=== PATIENT | female | born 1980 | race African-American/Black ===

== ENCOUNTER 2017-02-14 22:19 | Emergency (ER) | payer MEDICAID, OTHER ==
[~2017-02-14] VITALS: Ht 162.6 cm; Wt 104.0 kg
[~2017-02-14 22:19] MED LIST: IBUP-1649 PO
[2017-02-15] MEDS ORDERED: SODIUM CHLORIDE 0.9% 1,000 ML IV ONE (01:56)
[2017-02-15] MEDS ORDERED: ONDANSETRON HCL 4MG/2ML VIAL IV STA (01:56)
[2017-02-15 02:26] LABS: BASOPHILS % 0.6 % (0.0-2.0); EOSINOPHILS % 0.2 % (0.0-5.0); HEMOGLOBIN. 14.4 g/dL (12.0-16.0); LYMPHOCYTES % 13.3 % (20.0-50.0); MEAN CORPUSCULAR HEMOGLOBIN 31.6 pg (28.0-32.0); MEAN CORPUSCULAR VOLUME 90.2 fL (81.0-99.0); MEAN PLATELET VOLUME 7.4 fl (7.4-10.4); MONOCYTES % 8.2 % (2.0-8.0); NEUTROPHILS % 77.7 % (40.0-76.0); PLATELET 406 x1000/uL (130-400); RED BLOOD CELL COUNT 4.55 mill/uL (4.2-5.4); RED CELL DISTRIBUTION WIDTH 13.9 % (11.6-14.6)
[2017-02-15 02:28] LABS: CLARITY URINE CLOUDY (CLEAR); COLOR URINE DARK YELLOW (YELLOW); GLUCOSE URINE NEGATIVE (NEGATIVE); KETONES URINE 1+ (NEGATIVE); LEUKOCYTE ESTERASE URINE 2+ (NEGATIVE); NITRITE URINE NEGATIVE (NEGATIVE); OCCULT BLOOD URINE 1+ (NEGATIVE); PROTEIN URINE 2+ (NEGATIVE); SPECIFIC GRAVITY URINE 1.029 (1.005-1.030)
[2017-02-15 02:34] LABS: CHLORIDE 96 mEq/L (98-107)
[2017-02-15 02:44] LABS: CARBON DIOXIDE 28 mEq/L (21-32)
[2017-02-15] MEDS ORDERED: KETOROLAC 30MG/ML VIAL IV ONE (02:45)
[2017-02-15 03:07] LABS: *AMPHETAMINES SCREEN URINE NEGATIVE (NEGATIVE); *BARBITURATES SCREEN URINE NEGATIVE (NEGATIVE); *BENZODIAZEPINES SCREEN URINE NEGATIVE (NEGATIVE); *COCAINE SCREEN URINE NEGATIVE (NEGATIVE); METHADONE URINE SCREEN NEGATIVE (NEGATIVE); OPIATES URINE SCREEN NEGATIVE (NEGATIVE); PHENCYCLIDINE URINE SCREEN NEGATIVE (NEGATIVE)
[2017-02-15 03:26] LABS: CANNABINOID URINE SCREEN PRESUMTIVE POSITIVE (NEGATIVE)
[2017-02-15] MEDS ORDERED: FAMOTIDINE 20MG/2ML VIAL IV ONE (03:45)
[2017-02-15] MEDS ORDERED: LEVOFLOXACIN 500MG PREMIX 100 ML IV ONE (04:00)
[2017-02-15] MEDS ORDERED: TRAMADOL HCL/ACETAMINOPHEN 37.5/325MG TABLET PO ONE (04:00)
[2017-02-15] MEDS ORDERED: METOCLOPRAMIDE HCL 10MG/2ML VIAL IV ONE (05:15)
[2017-02-15 07:00] VITALS: BP 129/73
== END 2017-02-15 07:01 | disposition home or self-care (01) ==
LOC: ER 22:19
DX: G43.A0 Cyclical vomiting, in migraine, not intractable (principal); E11.9 Type 2 diabetes mellitus without complications; F12.90 Cannabis use, unspecified, uncomplicated; Z98.890 Other specified postprocedural states; Z87.891 Personal history of nicotine dependence
CPT/HCPCS: 36415; 80053; 80305; 81001; 81025; 83690; 85025; 96361; 96365; 96375; 99284; G0482; J1885; J1956; J2405; J2765; J3490; J7030; Z7610

== ENCOUNTER 2017-12-08 05:53 | Inpatient (IN) | payer OTHER ==
[~2017-12-08] VITALS: Ht 162.6 cm; Wt 112.9 kg
[2017-12-08] MEDS ORDERED: FAMOTIDINE 20MG/2ML VIAL IV STA (06:36)
[2017-12-08] MEDS ORDERED: MAGNESIUM/ALUMINUM HYDROXIDE/SIMETHICONE 30ML UDC PO STA (06:36)
[2017-12-08] MEDS ORDERED: SODIUM CHLORIDE 0.9% 1,000 ML IV ONE ×2 (06:36→08:45)
[2017-12-08] MEDS ORDERED: ONDANSETRON HCL 4MG/2ML VIAL IV STA (06:36)
[2017-12-08 07:30] LABS: BASOPHILS % 0.2 % (0.0-2.0); HEMATOCRIT. 40.8 % (36.0-48.0); LYMPHOCYTES % 12.2 % (20.0-50.0); MEAN CORPUSCULAR HEMOGLOBIN 31.1 pg (28.0-32.0); MEAN CORPUSCULAR VOLUME 90.5 fL (81.0-99.0); MEAN PLATELET VOLUME 7.7 fl (7.4-10.4); MONOCYTES % 6.4 % (2.0-8.0); NEUTROPHILS % 81.2 % (40.0-76.0); PLATELET 364 x1000/uL (130-400); RED CELL DISTRIBUTION WIDTH 13.8 % (11.6-14.6)
[2017-12-08 07:33] LABS: CHLORIDE 93 mEq/L (98-107)
[2017-12-08] MEDS ORDERED: KCL 20MEQ/100ML PREMIX 100 ML IV ONE (08:00)
[2017-12-08] MEDS ORDERED: POTASSIUM CHLORIDE 20MEQ/PACKET PO ONE (08:00)
[2017-12-08 08:10] LABS: INR 1.1; PROTHROMBIN TIME 11.3 sec (9.4-11.6)
[2017-12-08] MEDS ORDERED: METOCLOPRAMIDE HCL 10MG/2ML VIAL IV ONE (08:45)
[2017-12-08] MEDS ORDERED: DIPHENHYDRAMINE 50MG/ML VIAL IV ONE (08:45)
[2017-12-08] MEDS ORDERED: MORPHINE SULFATE 4 MG/ML CPJ (NOT FOR IM USE) IV ONE (08:45)
[2017-12-08 10:23] VITALS: BP 136/63
[2017-12-08 10:36] LABS: CLARITY URINE CLEAR (CLEAR); COLOR URINE YELLOW (YELLOW); KETONES URINE 1+ (NEGATIVE); LEUKOCYTE ESTERASE URINE 1+ (NEGATIVE); NITRITE URINE NEGATIVE (NEGATIVE); OCCULT BLOOD URINE NEGATIVE (NEGATIVE); PH URINE 7.5 (4.5-8.0); PROTEIN URINE 2+ (NEGATIVE); SPECIFIC GRAVITY URINE 1.015 (1.005-1.030)
[2017-12-08] MEDS ORDERED: SODIUM CHLORIDE 0.9% 1,000 ML IV SCH (11:45)
[2017-12-08] MEDS ORDERED: MORPHINE SULFATE 4 MG/ML CPJ (NOT FOR IM USE) IV PRN (11:45)
[2017-12-08] MEDS ORDERED: ONDANSETRON HCL 4MG/2ML VIAL IV PRN (11:45)
[2017-12-08] MEDS ORDERED: IPRATROPIUM/ALBUTEROL 0.5-3(2.5)MG/3ML NEB INH PRN (11:45)
[2017-12-08] MEDS ORDERED: ACETAMINOPHEN 650MG SUPP PR PRN (11:45)
[2017-12-08 12:00] VITALS: BP 141/72
[2017-12-08] MEDS ORDERED: PANTOPRAZOLE SODIUM 40 MG/VIAL IV SCH (13:00)
[2017-12-08] MEDS ORDERED: METRONIDAZOLE 500 MG PREMIX 100 ML IV SCH (14:00)
[2017-12-08 14:48] LABS: CREATINE KINASE 503 IU/L (26-192)
[2017-12-08 14:55] LABS: HCG SCREEN NEGATIVE
[2017-12-08] MEDS ORDERED: LEVOFLOXACIN 500MG PREMIX 100 ML IV SCH (15:00)
[2017-12-08] MEDS ORDERED: POTASSIUM CHLORIDE 20MEQ TABLET SR PO NR (15:00)
[2017-12-08 16:00] VITALS: BP 128/68
[2017-12-08 16:12] LABS: CHLORIDE 98 mEq/L (98-107)
[2017-12-08 17:01] LABS: METHADONE URINE SCREEN NEGATIVE (NEGATIVE)
[2017-12-08 17:02] LABS: *COCAINE SCREEN URINE NEGATIVE (NEGATIVE); PHENCYCLIDINE URINE SCREEN NEGATIVE (NEGATIVE)
[2017-12-08 17:03] LABS: *AMPHETAMINES SCREEN URINE NEGATIVE (NEGATIVE); *BARBITURATES SCREEN URINE NEGATIVE (NEGATIVE); *BENZODIAZEPINES SCREEN URINE NEGATIVE (NEGATIVE)
[2017-12-08 17:04] LABS: CANNABINOID URINE SCREEN PRESUMTIVE POSITIVE (NEGATIVE); OPIATES URINE SCREEN PRESUMTIVE POSITIVE (NEGATIVE)
[2017-12-08 18:32] VITALS: BP 128/68
== END 2017-12-08 19:11 | disposition home or self-care (01) | DRG 816 ==
LOC: ER 07:35 → ENRESERV 08:28 → 7WST 08:47 → EDBEDREQ 09:05
PROVIDERS: ADMIT Internal Medicine; ATTEND Internal Medicine
DX: T51.0X1A Toxic effect of ethanol, accidental (unintentional), initial encounter (principal); Z68.41 Body mass index [BMI] 40.0-44.9, adult; I10 Essential (primary) hypertension; E86.0 Dehydration; E66.9 Obesity, unspecified; E11.9 Type 2 diabetes mellitus without complications; E78.5 Hyperlipidemia, unspecified; E87.6 Hypokalemia; K29.20 Alcoholic gastritis without bleeding; F17.210 Nicotine dependence, cigarettes, uncomplicated; K21.9 Gastro-esophageal reflux disease without esophagitis; N39.0 Urinary tract infection, site not specified; Z98.891 History of uterine scar from previous surgery; Z79.899 Other long term (current) drug therapy; Z71.41 Alcohol abuse counseling and surveillance of alcoholic
CPT/HCPCS: 36415; 74018; 80048; 80053; 80305; 81003; 82550; 82553; 82962; 83690; 84132; 84484; 84703; 85025; 85610; 87086; 93005; C9113; J1200; J1956; J2270; J2405; J2765; J3480; J3490; J7030; J7040

== ENCOUNTER 2018-02-15 00:04 | Emergency (ER) | payer OTHER ==
[~2018-02-15] VITALS: Ht 162.6 cm; Wt 100.0 kg
[2018-02-15] MEDS ORDERED: SODIUM CHLORIDE 0.9% 1,000 ML IV ONE (01:45)
[2018-02-15] MEDS ORDERED: METOCLOPRAMIDE HCL 10MG/2ML VIAL IV STA (01:45)
[2018-02-15] MEDS ORDERED: FAMOTIDINE 20MG/2ML VIAL IV STA (01:45)
[2018-02-15 02:32] LABS: CHLORIDE 100 mEq/L (98-107)
[2018-02-15 02:35] LABS: ETHANOL BLOOD < 10 mg/dL
[2018-02-15 02:37] LABS: BASOPHILS % 0.4 % (0.0-2.0); HEMATOCRIT. 42.6 % (36.0-48.0); LYMPHOCYTES % 7.2 % (20.0-50.0); MEAN CORPUSCULAR HEMOGLOBIN 30.2 pg (28.0-32.0); MEAN CORPUSCULAR VOLUME 92.3 fL (81.0-99.0); MEAN PLATELET VOLUME 7.5 fl (7.4-10.4); MONOCYTES % 4.4 % (2.0-8.0); PLATELET 411 x1000/uL (130-400); RED BLOOD CELL COUNT 4.62 mill/uL (4.2-5.4); RED CELL DISTRIBUTION WIDTH 14.5 % (11.6-14.6)
[2018-02-15 02:43] LABS: CLARITY URINE CLOUDY (CLEAR); COLOR URINE YELLOW (YELLOW); PROTEIN URINE 2+ (NEGATIVE); SPECIFIC GRAVITY URINE 1.043 (1.005-1.030)
[2018-02-15 02:44] LABS: KETONES URINE 2+ (NEGATIVE); LEUKOCYTE ESTERASE URINE TRACE (NEGATIVE); NITRITE URINE NEGATIVE (NEGATIVE); OCCULT BLOOD URINE 1+ (NEGATIVE)
[2018-02-15 02:57] LABS: *AMPHETAMINES SCREEN URINE NEGATIVE (NEGATIVE); *BARBITURATES SCREEN URINE NEGATIVE (NEGATIVE); *BENZODIAZEPINES SCREEN URINE NEGATIVE (NEGATIVE); *COCAINE SCREEN URINE NEGATIVE (NEGATIVE); METHADONE URINE SCREEN NEGATIVE (NEGATIVE); OPIATES URINE SCREEN NEGATIVE (NEGATIVE); PHENCYCLIDINE URINE SCREEN NEGATIVE (NEGATIVE)
[2018-02-15 03:06] LABS: CANNABINOID URINE SCREEN PRESUMTIVE POSITIVE (NEGATIVE)
[2018-02-15] MEDS ORDERED: HYDROCODONE/ACETAMINOPHEN 5/325MG TABLET PO ONE (06:00)
[2018-02-15 06:12] VITALS: BP 160/85
== END 2018-02-15 07:00 | disposition home or self-care (01) ==
LOC: ER 00:04 → CANBEDREQ 17:03
DX: R10.9 Unspecified abdominal pain (principal); E11.9 Type 2 diabetes mellitus without complications; F10.20 Alcohol dependence, uncomplicated; Z87.891 Personal history of nicotine dependence
CPT/HCPCS: 36415; 71045; 76700; 80053; 80305; 81003; 81025; 82962; 83605; 83690; 85025; 93005; 96361; 96374; 96375; 99285; G0482; J2765; J3490; J7030

== ENCOUNTER 2019-02-21 17:57 | Emergency (ER) | payer OTHER ==
[~2019-02-21] VITALS: Ht 162.6 cm; Wt 104.0 kg
[~2019-02-21 17:57] MED LIST changes: -IBUP-1649 PO; +IBUP-2077 PO
[2019-02-22 00:44] LABS: BASOPHILS % 0.2 % (0.0-2.0); HEMATOCRIT. 39.1 % (36.0-48.0); HEMOGLOBIN. 13.3 g/dL (12.0-16.0); LYMPHOCYTES % 7.1 % (20.0-50.0); MEAN CORPUSCULAR VOLUME 88.1 fL (81.0-99.0); MEAN PLATELET VOLUME 7.6 fl (7.4-10.4); MONOCYTES % 6.6 % (2.0-8.0); NEUTROPHILS % 86.1 % (40.0-76.0); PLATELET 412 x1000/uL (130-400); RED BLOOD CELL COUNT 4.44 mill/uL (4.2-5.4); RED CELL DISTRIBUTION WIDTH 15.3 % (11.6-14.6)
[2019-02-22 00:51] LABS: CHLORIDE 97 mEq/L (98-107)
[2019-02-22] MEDS: VISCOUS LIDOCAINE 2% 15 ML UDC PO STA (00:53)
[2019-02-22] MEDS: MAGNESIUM/ALUMINUM HYDROXIDE/SIMETHICONE 30ML UDC PO STA (00:53)
[2019-02-22 00:54] LABS: ETHANOL BLOOD < 10 mg/dL
[2019-02-22 01:28] LABS: CLARITY URINE CLOUDY (CLEAR); COLOR URINE DARK YELLOW (YELLOW); KETONES URINE 1+ (NEGATIVE); LEUKOCYTE ESTERASE URINE TRACE (NEGATIVE); NITRITE URINE NEGATIVE (NEGATIVE); OCCULT BLOOD URINE 1+ (NEGATIVE); PH URINE 5.5 (4.5-8.0); PROTEIN URINE 3+ (NEGATIVE); SPECIFIC GRAVITY URINE 1.037 (1.005-1.030)
[2019-02-22 01:39] LABS: *BARBITURATES SCREEN URINE NEGATIVE (NEGATIVE); *BENZODIAZEPINES SCREEN URINE NEGATIVE (NEGATIVE); *COCAINE SCREEN URINE NEGATIVE (NEGATIVE)
[2019-02-22 01:40] LABS: METHADONE URINE SCREEN NEGATIVE (NEGATIVE); OPIATES URINE SCREEN NEGATIVE (NEGATIVE); PHENCYCLIDINE URINE SCREEN NEGATIVE (NEGATIVE)
[2019-02-22 01:44] LABS: *AMPHETAMINES SCREEN URINE NEGATIVE (NEGATIVE)
[2019-02-22 01:47] LABS: CANNABINOID URINE SCREEN PRESUMTIVE POSITIVE (NEGATIVE)
[2019-02-22] MEDS: CEFTRIAXONE 1 G PREMIX 50 ML IV ONE (03:15)
[2019-02-22] MEDS: KETOROLAC 30MG/ML VIAL IV ONE (03:15)
[2019-02-22] MEDS: ONDANSETRON 4MG ODT PO ONE (04:31)
[2019-02-22] MEDS: PHENAZOPYRIDINE HCL 100MG TABLET PO ONE (04:31)
[2019-02-22 04:41] VITALS: BP 182/98
== END 2019-02-22 04:45 | disposition home or self-care (01) ==
LOC: ER 17:57
DX: N39.0 Urinary tract infection, site not specified (principal); R11.2 Nausea with vomiting, unspecified; R19.7 Diarrhea, unspecified; E11.9 Type 2 diabetes mellitus without complications; K21.9 Gastro-esophageal reflux disease without esophagitis; Z98.890 Other specified postprocedural states
CPT/HCPCS: 36415; 71045; 74176; 80053; 80305; 80320; 81003; 81025; 82962; 83690; 85025; 87086; 96365; 96375; 99284; J0696; J1885; Q0162; G0480

== ENCOUNTER 2019-11-22 16:13 | Emergency (ER) | payer OTHER ==
[~2019-11-22] VITALS: Ht 162.6 cm; Wt 90.0 kg
[2019-11-22] MEDS ORDERED: ONDANSETRON HCL 4MG/2ML INJ ONE (17:10)
[2019-11-22] MEDS ORDERED: SODIUM CHLORIDE 0.9% 1,000 ML IV ONE (17:14)
[2019-11-22] MEDS ORDERED: ONDANSETRON HCL 4MG/2ML INJ IV STA (17:14)
[2019-11-22] MEDS ORDERED: ACETAMINOPHEN 500MG TABLET PO ONE (17:15)
[2019-11-22 17:25] LABS: CLARITY URINE CLEAR (CLEAR); COLOR URINE ORANGE (YELLOW); KETONES URINE TRACE (NEGATIVE); LEUKOCYTE ESTERASE URINE 2+ (NEGATIVE); NITRITE URINE NEGATIVE (NEGATIVE); OCCULT BLOOD URINE 3+ (NEGATIVE); PH URINE 6.5 (4.5-8.0); PROTEIN URINE 2+ (NEGATIVE); SPECIFIC GRAVITY URINE 1.017 (1.005-1.030)
[2019-11-22 17:31] LABS: CHLORIDE 90 mEq/L (98-107)
[2019-11-22 17:37] LABS: BASOPHILS % 0.6 % (0.0-2.0); EOSINOPHILS % 0.1 % (0.0-5.0); HEMATOCRIT. 38.2 % (36.0-48.0); HEMOGLOBIN. 12.8 g/dL (12.0-16.0); LYMPHOCYTES % 13.6 % (20.0-50.0); MEAN CORPUSCULAR HEMOGLOBIN 28.1 pg (28.0-32.0); MEAN CORPUSCULAR VOLUME 83.9 fL (81.0-99.0); MONOCYTES % 7.2 % (2.0-8.0); NEUTROPHILS % 78.5 % (40.0-76.0); PLATELET 538 x1000/uL (130-400); RED BLOOD CELL COUNT 4.55 mill/uL (4.2-5.4); RED CELL DISTRIBUTION WIDTH 15.4 % (11.6-14.6)
[2019-11-22] MEDS ORDERED: CEFTRIAXONE 1 G PREMIX 50 ML IV SCH (18:00)
[2019-11-22] MEDS ORDERED: POTASSIUM CHLORIDE 20MEQ TABLET SR PO NR (18:22)
[2019-11-22] MEDS ORDERED: SODIUM CHLORIDE 0.9% 1,000 ML IV NR (18:23)
[2019-11-22 18:45] VITALS: BP 177/63
[2019-11-22 19:21] LABS: HCG SCREEN NEGATIVE
[2019-11-22 19:22] LABS: UCG SCREEN NEGATIVE
== END 2019-11-22 20:35 | disposition home or self-care (01) ==
LOC: ER 16:13
DX: N39.0 Urinary tract infection, site not specified (principal); R11.10 Vomiting, unspecified; E87.6 Hypokalemia; E11.9 Type 2 diabetes mellitus without complications; K21.9 Gastro-esophageal reflux disease without esophagitis; Z98.890 Other specified postprocedural states
CPT/HCPCS: 36415; 80053; 81003; 81025; 83690; 84703; 85025; 96361; 96374; 96375; 99284; J0696; J2405; J7030

== ENCOUNTER 2019-12-24 21:20 | Emergency (ER) | payer OTHER ==
[~2019-12-24] VITALS: Ht 162.6 cm; Wt 91.5 kg
[2019-12-24] MEDS ORDERED: VISCOUS LIDOCAINE 2% 15 ML UDC PO STA (22:44)
[2019-12-24] MEDS ORDERED: MAGNESIUM/ALUMINUM HYDROXIDE/SIMETHICONE 30ML UDC PO STA (22:44)
[2019-12-24] MEDS ORDERED: SODIUM CHLORIDE 0.9% 1,000 ML IV ONE (22:44)
[2019-12-24] MEDS ORDERED: ACETAMINOPHEN 325MG TABLET PO STA (22:44)
[2019-12-24 23:12] LABS: HEMATOCRIT. 36.6 % (36.0-48.0); HEMOGLOBIN. 12.2 g/dL (12.0-16.0); MEAN CORPUSCULAR HEMOGLOBIN 27.5 pg (28.0-32.0); MEAN CORPUSCULAR VOLUME 82.9 fL (81.0-99.0); MEAN PLATELET VOLUME 7.3 fl (7.4-10.4); PLATELET 604 x1000/uL (130-400); RED BLOOD CELL COUNT 4.42 mill/uL (4.2-5.4); RED CELL DISTRIBUTION WIDTH 16.5 % (11.6-14.6)
[2019-12-24 23:13] LABS: CLARITY URINE CLEAR (CLEAR); COLOR URINE YELLOW (YELLOW); KETONES URINE 1+ (NEGATIVE); LEUKOCYTE ESTERASE URINE NEGATIVE (NEGATIVE); NITRITE URINE NEGATIVE (NEGATIVE); OCCULT BLOOD URINE TRACE (NEGATIVE); PH URINE 6.5 (4.5-8.0); PROTEIN URINE 3+ (NEGATIVE); SPECIFIC GRAVITY URINE 1.027 (1.005-1.030)
[2019-12-24 23:16] LABS: CHLORIDE 105 mEq/L (98-107)
[2019-12-24 23:20] LABS: PROTHROMBIN TIME 10.7 sec (9.6-11.0)
[2019-12-24] MEDS ORDERED: CEFTRIAXONE 1 G PREMIX 50 ML IV ONE (23:45)
[2019-12-24 23:54] LABS: PLATELET ESTIMATE INCREASED
[2019-12-25] MEDS ORDERED: ONDANSETRON HCL 4MG/2ML INJ IV ONE (00:15)
[2019-12-25] MEDS ORDERED: KETOROLAC 15MG/ML VIAL IV ONE (00:15)
[2019-12-25 02:11] VITALS: BP 154/81
[2019-12-25] MEDS ORDERED: ONDANSETRON 4MG ODT PO ONE (02:30)
== END 2019-12-25 02:31 | disposition home or self-care (01) ==
LOC: ER 21:20
DX: N39.0 Urinary tract infection, site not specified (principal); K21.9 Gastro-esophageal reflux disease without esophagitis; R10.13 Epigastric pain; Z98.890 Other specified postprocedural states
CPT/HCPCS: 36415; 71045; 76705; 80053; 81003; 83690; 85025; 85610; 93005; 96365; 96366; 96375; 99285; J0696; J1885; J2405; J7030; Q0162

== ENCOUNTER 2020-06-01 19:22 | Emergency (ER) | payer OTHER ==
[~2020-06-01] VITALS: Ht 162.6 cm; Wt 87.0 kg
[2020-06-01] MEDS ORDERED: METOCLOPRAMIDE HCL 10MG/2ML VIAL IV STA (20:53)
[2020-06-01] MEDS ORDERED: FAMOTIDINE 20MG/2ML VIAL IV STA (20:53)
[2020-06-01] MEDS ORDERED: SODIUM CHLORIDE 0.9% 1,000 ML IV ONE (21:00)
[2020-06-01] MEDS ORDERED: DIPHENHYDRAMINE 12.5MG/5ML UDC PO ONE (21:00)
[2020-06-01 21:59] LABS: BASOPHILS % 0.8 % (0.0-2.0); HEMATOCRIT. 36.6 % (36.0-48.0); HEMOGLOBIN. 12.1 g/dL (12.0-16.0); LYMPHOCYTES % 15.5 % (20.0-50.0); MEAN CORPUSCULAR HEMOGLOBIN 26.6 pg (28.0-32.0); MEAN CORPUSCULAR VOLUME 80.2 fL (81.0-99.0); MEAN PLATELET VOLUME 7.7 fl (7.4-10.4); MONOCYTES % 7.7 % (2.0-8.0); PLATELET 654 x1000/uL (130-400); RED BLOOD CELL COUNT 4.56 mill/uL (4.2-5.4); RED CELL DISTRIBUTION WIDTH 16.8 % (11.6-14.6)
[2020-06-01 22:04] LABS: CHLORIDE 92 mEq/L (98-107)
[2020-06-01 22:07] LABS: HCG SCREEN NEGATIVE
[2020-06-01 22:09] LABS: ETHANOL BLOOD < 10 mg/dL
[2020-06-01 22:12] LABS: CLARITY URINE CLOUDY (CLEAR); COLOR URINE YELLOW (YELLOW); KETONES URINE 1+ (NEGATIVE); LEUKOCYTE ESTERASE URINE 2+ (NEGATIVE); NITRITE URINE NEGATIVE (NEGATIVE); OCCULT BLOOD URINE 1+ (NEGATIVE); PH URINE 5.5 (4.5-8.0); PROTEIN URINE 2+ (NEGATIVE); SPECIFIC GRAVITY URINE 1.025 (1.005-1.030)
[2020-06-01] MEDS ORDERED: POTASSIUM CHLORIDE 20MEQ TABLET SR PO ONE (22:45)
[2020-06-01] MEDS ORDERED: ASPIRIN 81MG TABLET PO ONE (22:45)
[2020-06-01] MEDS ORDERED: NITROGLYCERIN 0.4MG TABLET SL SL ONE (22:45)
[2020-06-01 22:50] LABS: METHADONE URINE SCREEN NEGATIVE (NEGATIVE); OPIATES URINE SCREEN NEGATIVE (NEGATIVE); PHENCYCLIDINE URINE SCREEN NEGATIVE (NEGATIVE)
[2020-06-01 22:51] LABS: *AMPHETAMINES SCREEN URINE NEGATIVE (NEGATIVE); *BARBITURATES SCREEN URINE NEGATIVE (NEGATIVE); *BENZODIAZEPINES SCREEN URINE NEGATIVE (NEGATIVE); *COCAINE SCREEN URINE NEGATIVE (NEGATIVE)
[2020-06-01 23:03] LABS: CANNABINOID URINE SCREEN PRESUMTIVE POSITIVE (NEGATIVE)
[2020-06-01] MEDS ORDERED: MORPHINE SULFATE 4 MG/ML CPJ (NOT FOR IM USE) IV ONE (23:45)
[2020-06-01] MEDS ORDERED: HYDRALAZINE HCL 25MG TABLET PO ONE (23:45)
[2020-06-02 06:30] VITALS: BP 154/76
== END 2020-06-02 07:14 | disposition short-term general hospital (02) ==
LOC: ER 19:22
DX: R07.89 Other chest pain (principal); I10 Essential (primary) hypertension; E87.6 Hypokalemia; Z87.891 Personal history of nicotine dependence
CPT/HCPCS: 36415; 71045; 76700; 80053; 80305; 80320; 81003; 81025; 83690; 83880; 84484; 84703; 85025; 87086; 93005; 96361; 96374; 96375; 99285; J2270; J2765; J3490; J7030; Q0163; Z7610; G0480

== ENCOUNTER 2020-12-19 10:06 | Emergency (ER) | payer OTHER ==
[~2020-12-19] VITALS: Ht 162.6 cm; Wt 100.0 kg
[2020-12-19] MEDS ORDERED: NITROGLYCERIN 0.4MG TABLET SL SL PRN (10:45)
[2020-12-19] MEDS ORDERED: ASPIRIN 81MG TABLET PO ONE (10:45)
[2020-12-19 10:56] LABS: BASOPHILS % 0.7 % (0.0-2.0); EOSINOPHILS % 0.4 % (0.0-5.0); HEMATOCRIT. 36.1 % (36.0-48.0); HEMOGLOBIN. 11.6 g/dL (12.0-16.0); LYMPHOCYTES % 8.1 % (20.0-50.0); MEAN CORPUSCULAR HEMOGLOBIN 25.6 pg (28.0-32.0); MEAN CORPUSCULAR VOLUME 79.6 fL (81.0-99.0); MEAN PLATELET VOLUME 7.4 fl (7.4-10.4); MONOCYTES % 6.4 % (2.0-8.0); NEUTROPHILS % 84.4 % (40.0-76.0); PLATELET 514 x1000/uL (130-400); RED BLOOD CELL COUNT 4.53 mill/uL (4.2-5.4); RED CELL DISTRIBUTION WIDTH 16.2 % (11.6-14.6)
[2020-12-19 10:58] LABS: CHLORIDE 99 mEq/L (98-107)
[2020-12-19 11:11] LABS: HCG SCREEN NEGATIVE
[2020-12-19] MEDS ORDERED: KETOROLAC 30MG/ML VIAL IV STA (12:37)
[2020-12-19] MEDS ORDERED: ONDANSETRON 4MG ODT PO STA (12:37)
[2020-12-19] MEDS ORDERED: VISCOUS LIDOCAINE 2% 15 ML UDC PO ONE (12:45)
[2020-12-19] MEDS ORDERED: MAGNESIUM/ALUMINUM HYDROXIDE/SIMETHICONE 30ML UDC PO ONE (12:45)
[2020-12-19] MEDS ORDERED: ASPI-1497 MT (16:16)
[2020-12-19 16:40] VITALS: BP 148/70
== END 2020-12-19 16:41 | disposition home or self-care (01) ==
LOC: ER 10:06
DX: R07.89 Other chest pain (principal); R11.10 Vomiting, unspecified; F17.210 Nicotine dependence, cigarettes, uncomplicated; Z79.82 Long term (current) use of aspirin
CPT/HCPCS: 36415; 71045; 80053; 83690; 83880; 84484; 84703; 85025; 93005; 96374; 99285; J1885; Q0162; Z7610